=== PATIENT | male | born 1965 | race Caucasian/White ===

== ENCOUNTER → 2017-01-11 | Outpatient (REF) ==
[~2017-01-11] MED LIST: BACTRIM DS 8001 TAB PO; CEPHALEXIN500 M1 PO; CLINDAMYCIN150 MG PO; MOTRIN 200200 MG/TAB PO; NAPROXEN500 MG PO; NO HOME MEDICATIONS; NORCO 325 MG-7.1 TAB PO; PERCOCET 325 MG1 TA2 PO
== END ==
LOC: WSOH 13:46
DX: Z01.10 Encounter for examination of ears and hearing without abnormal findings (principal)

== ENCOUNTER 2024-01-25 10:44 | Emergency (ER) | payer SELFPAY ==
[~2024-01-25] VITALS: Ht 177.8 cm; Wt 122.7 kg
[2024-01-25 10:56] VITALS: BP 139/88; TEMP 97.8
[2024-01-25] MEDS ORDERED: NORCO 325 MG-51 TAB PO (12:20)
[2024-01-25 12:54] VITALS: PULSE 76
== END 2024-01-25 12:54 | disposition home or self-care (01) ==
LOC: COL.ER 10:44
DX: S60.212A Contusion of left wrist, initial encounter (principal); W31.82XA Contact with other commercial machinery, initial encounter; Y92.89 Other specified places as the place of occurrence of the external cause; Y99.0 Civilian activity done for income or pay